=== PATIENT | female | born 1960 | race Caucasian/White ===

== ENCOUNTER 2018-09-10 06:46 | Emergency (ER) | payer MEDICAID ==
[~2018-09-10] VITALS: Ht 167.6 cm; Wt 85.7 kg
[~2018-09-10 06:46] MED LIST: CLIN1CAP4 PO; DABI150C PO
[2018-09-10 07:36] VITALS: BP 159/98
[2018-09-10] MEDS ORDERED: ACETAMINOPHEN 500 MG TAB PO ONE (08:15)
== END 2018-09-10 08:45 | disposition home or self-care (01) ==
LOC: ER 06:46 → EDBD 06:46 → ER 08:45
DX: S61.012A Laceration without foreign body of left thumb without damage to nail, initial encounter (principal); S00.93XA Contusion of unspecified part of head, initial encounter; F17.210 Nicotine dependence, cigarettes, uncomplicated; Z88.2 Allergy status to sulfonamides; Z79.2 Long term (current) use of antibiotics; Z79.899 Other long term (current) drug therapy; Z90.49 Acquired absence of other specified parts of digestive tract; V49.50XA Passenger injured in collision with unspecified motor vehicles in traffic accident, initial encounter; Y93.89 Activity, other specified; Y92.410 Unspecified street and highway as the place of occurrence of the external cause; Y99.8 Other external cause status
CPT/HCPCS: 70450

== ENCOUNTER 2021-03-08 13:39 | Emergency (ER) | payer OTHER, MEDICAID ==
[~2021-03-08] VITALS: Ht 167.6 cm; Wt 94.3 kg
[~2021-03-08 13:39] MED LIST changes: -CLIN1CAP4 PO; +CLIN300C8 PO; -DABI150C PO; +DABI150C5 PO
[2021-03-08 13:49] VITALS: BP 146/73
[2021-03-08 15:17] LABS: Basophils # (auto) 0 10 ^3/uL (0-0.2); Basophils % (auto) 0.4 % (0.0-2.0); Eosinophils # (auto) 0.1 10 ^3/uL (0-0.8); Eosinophils % (auto) 1.4 % (0.0-7.0); Hemoglobin 13.4 g/dL (12.2-16.2); Lymphocytes # (auto) 1.6 10 ^3/uL (0.4-5.4); Lymphocytes % (auto) 19.4 % (10.0-50.0); Mean Corpuscular Hemoglobin 27.7 pg (28.0-32.0); Mean Corpuscular Hgb Conc. 33.4 g/dL (32.0-36.0); Mean Corpuscular Volume 82.9 fL (80.0-100.0); Monocytes # (auto) 0.8 10 ^3/uL (0-1.3); Neutrophils # (auto) 5.8 10 ^3/uL (1.6-8.6); Neutrophils % (auto) 68.8 % (37.0-80.0); Red Blood Cells 4.83 10^6/uL (4.0-5.20); Red Cell Distribution Width 14.1 % (11.8-14.3); White Blood Cell 8.4 10^3/uL (4.4-10.8)
[2021-03-08 15:37] LABS: Potassium 4.3 mmol/L (3.5-5.1)
[2021-03-08 15:54] LABS: BUN/Creatinine Ratio 16.7; Bilirubin, Total 0.6 mg/dL (0.2-1.0); Calcium 8.9 mg/dL (8.5-10.1); Total Protein 6.8 g/dL (6.4-8.2)
[2021-03-08] MEDS ORDERED: FLEET ENEMA(ADULT) 135 ML PR ONE (19:00)
== END 2021-03-08 22:46 | disposition left against medical advice (07) ==
LOC: ER 13:39
DX: K59.00 Constipation, unspecified (principal); F17.210 Nicotine dependence, cigarettes, uncomplicated; Z90.49 Acquired absence of other specified parts of digestive tract; Z88.2 Allergy status to sulfonamides
CPT/HCPCS: 36415; 74176; 80053; 85025